=== PATIENT | female | born 1985 | race Caucasian/White ===

== ENCOUNTER 2020-05-19 09:17 | Emergency (ER) | payer SELFPAY ==
[2020-05-19] MEDS ORDERED: Bacitracin Oint 1 GM U/D Packet TOP ONE (09:30)
[2020-05-19] MEDS: Lidocaine 1% 30 ML SDV INFILT ONE (09:30)
[2020-05-19] MEDS: Diphtheria,Pertussis(Acell),Tetanus Vaccine 0.5 ML SDV IM ONE (10:00)
--- NOTE | 2020-05-19 10:01 | EDM.PDOC ---
ED [facility] GENERAL MEDICAL PROBLEM - General Chief Complaint: General Stated Complaint: FINGER INJURY Time Seen by Provider: 05/19/20 09:25 Source of Information: Reports: Patient History Limitations: Reports: No Limitations - History of Present Illness INITIAL COMMENTS - FREE TEXT/NARRATIVE: 35 year old female presents to ER with 2.5 cm laceration to right hand between 4th and 5th finger. She was at work and cut her hand on an exposed bolt. Bleeding controlled on arrival, unsure on tetanus status. CMS +, clean wound. Onset: Today Location: Reports: Upper Extremity, Right Severity: Mild Past Medical History Other HEENT History: tonsillectomy ED ROS GENERAL - Review of Systems Review Of Systems: Comprehensive ROS is negative, except as noted in HPI. ED EXAM, GENERAL - Physical Exam Exam: See Below Exam Limited By: No Limitations General Appearance: Alert, No Apparent Distress Ears: Normal External Exam, Hearing Grossly Normal Ear Exam: Bilateral Ear: Auricle Normal Nose: Normal Inspection, No Blood Throat/Mouth: Normal Inspection, Normal Voice Head: Atraumatic Neck: Normal Inspection, Full Range of Motion Respiratory/Chest: No Respiratory Distress Cardiovascular: Regular Rate, Rhythm Peripheral Pulses: 3+: Radial (L), Radial (R) GI/Abdominal: Non-Tender Back Exam: Full Range of Motion Extremities: Normal Inspection, Normal Range of Motion, Normal Capillary Refill Neurological: Alert, Oriented, CN II-XII Intact, Normal Gait, No Motor/Sensory Deficits, Sensory/Motor Deficit Psychiatric: Normal Affect Skin Exam: Warm, Dry, Normal Color, No Rash, Wound/Incision Lymphatic: No Adenopathy ED GENERAL MEDICAL PROCEDURES - Laceration/Wound Repair Right Midline Hand Lac/wound length in cm: 2.5 Appearance: Superficial, Clean Distal NVT: Neuro & Vascular Intact, No Tendon Injury Anesthetic Type: Local Local Anesthesia - Lidocaine (Xylocaine): 1% Plain Local Anesthetic Volume: 2cc Skin Prep: Providone-Iodine (Betadine) Exploration/Debridement/Repair: Wound Explored Closed with: Sutures Suture Size: 4-0 # of Sutures: 6 Suture Type: Nylon Departure - Departure Time of Disposition: 09:59 Disposition: Home, Self-Care 01 Clinical Impression: Laceration - Discharge Information *PRESCRIPTION DRUG MONITORING PROGRAM REVIEWED*: Not Applicable *COPY OF PRESCRIPTION DRUG MONITORING REPORT IN PATIENT WINNIE: Not Applicable Instructions: Laceration Care, Adult Referrals: PCP,None [Primary Care Provider] - Forms: ED Department Discharge Care Plan Goals: Please have sutures removed in 7-8 days. Take ibuprofen and tylenol as needed. Watch for signs and symptoms of infection.
[2020-05-19 16:26] VITALS: PULSE 88
[2020-05-19 16:28] VITALS: BP 150/102
== END 2020-05-19 10:00 | disposition home or self-care (01) ==
LOC: LB.NPLAB 09:17 → LB.ED 09:17 → LB.NPLAB 10:00 → LB.ED 10:00 → EDSTATUS 12:08
DX: S61.411A Laceration without foreign body of right hand, initial encounter (principal); Z23 Encounter for immunization; W26.8XXA Contact with other sharp object(s), not elsewhere classified, initial encounter; Y92.89 Other specified places as the place of occurrence of the external cause; Y99.0 Civilian activity done for income or pay
CPT/HCPCS: 12001; 90471; 90715; 99282-25

== ENCOUNTER 2024-04-29 12:41 | Inpatient (IN) | payer OTHER ==
[2024-04-29] MEDS: Sodium Chloride 0.9% 1,000 ML IV ONE (15:00)
[2024-04-29] MEDS: Ibuprofen 800 MG Tab PO ONE (15:22)
[2024-04-29 15:32] LABS: HEMATOCRIT 39.7 % (37.0-47.0); MEAN CORPUSCULAR HGB CONC 35.3 g/dL (31.0-35.0); MEAN CORPUSCULAR VOLUME 91 fL (76-96); PLATELET COUNT,PLT 227 K/uL (150-500); RED BLOOD CELL COUNT 4.38 M/uL (3.80-5.80); RED CELL DISTRIBUTION WIDTH 12.2 % (11.0-16.0)
[2024-04-29 15:43] LABS: WHITE BLOOD CELL COUNT,WBC 23.1 K/uL (4.0-11.0)
[2024-04-29 15:51] LABS: ANION GAP 13.7 mmol/L (5.0-15.0); BUN/CREATININE RATIO 7.7 (6-25); CALCIUM 8.7 mg/dL (8.5-10.1); CARBON DIOXIDE,CO2 25.7 mmol/L (21.0-32.0); CREATININE 0.78 mg/dL (0.55-1.02); EST CRCL DRUG DOSING (CG) 106.79 mL/min; POTASSIUM,K 3.4 mmol/L (3.5-5.1)
[2024-04-29 16:09] LABS: ANISOCYTOSIS OCCASIONAL; PLATELET COUNT ESTIMATE ADEQUATE; POIKILOCYTOSIS OCCASIONAL
[2024-04-29] MEDS: VANCOmycin 2 GM in Sodium Chloride 0.9% 500 ML IV ONE (16:11)
[2024-04-29] MEDS ORDERED: Ondansetron 4 MG/2 ML SDV IV PRN (16:17)
[2024-04-29] MEDS: FLUoxetine 10 MG Cap PO SCH (20:00)
[2024-04-29] MEDS: Acetaminophen 325 MG Tab PO PRN (21:15)
[2024-04-30] MEDS: Levothyroxine 88 MCG Tab PO SCH (06:50)
[2024-04-30] MEDS: Lactobacillus Acidophilus/Lactobacillus Sporogenes (Probiotic) Tab PO SCH (07:42)
[2024-04-30] MEDS: Enoxaparin 40 MG/0.4 ML Syringe SUBCUT SCH (07:42)
[2024-04-30 08:03] LABS: HEMOGLOBIN 13.2 g/dL (11.5-16.5); MEAN CORPUSCULAR HEMOGLOBIN 32.1 pg (27.0-32.0); MEAN CORPUSCULAR HGB CONC 34.7 g/dL (31.0-35.0); MEAN PLATELET VOLUME 10.5 fL (6.0-10.0); RED BLOOD CELL COUNT 4.11 M/uL (3.80-5.80); RED CELL DISTRIBUTION WIDTH 12.4 % (11.0-16.0); WHITE BLOOD CELL COUNT,WBC 16.6 K/uL (4.0-11.0)
[2024-04-30 08:48] LABS: A/G RATIO 0.6 (0.8-2.0); ALBUMIN 2.4 g/dL (3.4-5.0); ANION GAP 12.8 mmol/L (5.0-15.0); BILIRUBIN TOTAL 0.3 mg/dL (0.0-1.0); BUN/CREATININE RATIO 6.3 (6-25); CALCIUM 8.6 mg/dL (8.5-10.1); CARBON DIOXIDE,CO2 27.6 mmol/L (21.0-32.0); CREATININE 0.8 mg/dL (0.55-1.02); EST CRCL DRUG DOSING (CG) 104.12 mL/min; POTASSIUM,K 3.4 mmol/L (3.5-5.1); PROTEIN TOTAL,TP 6.4 g/dL (6.4-8.2)
[2024-04-30] MEDS: traMADol 50 MG Tab PO PRN (09:25)
[2024-04-30] MEDS: VANCOmycin 1 GM in Sodium Chloride 0.9% 250 ML IV SCH (09:26)
[2024-04-30] MEDS: VANCOmycin 0.75 GM in Sodium Chloride 0.9% 250 ML IV ONE (11:47)
[2024-04-30] MEDS: VANCOmycin 750 MG/150 ML 750 MG in Premix Bag 1 BAG IV SCH (17:45)
[2024-04-30] MEDS: VANCOmycin 1.75 GM in Sodium Chloride 0.9% 500 ML IV SCH (21:09)
[2024-05-01] MEDS ORDERED: Albuterol/Ipratropium 3.0-0.5 MG/3 ML Neb Soln NEB PRN (08:14)
[2024-05-01] MEDS: guaiFENesin/Dextromethorphan 100-10 MG/5 ML Soln 10 ML Cup PO PRN (08:41)
[2024-05-01] MEDS: Ibuprofen 400 MG Tab PO PRN (08:41)
[2024-05-01 09:54] LABS: HEMATOCRIT 37.3 % (37.0-47.0); MEAN CORPUSCULAR HEMOGLOBIN 32.1 pg (27.0-32.0); MEAN CORPUSCULAR HGB CONC 34.9 g/dL (31.0-35.0); MEAN PLATELET VOLUME 9.7 fL (6.0-10.0); RED BLOOD CELL COUNT 4.05 M/uL (3.80-5.80); RED CELL DISTRIBUTION WIDTH 12.5 % (11.0-16.0); WHITE BLOOD CELL COUNT,WBC 12.3 K/uL (4.0-11.0)
[2024-05-01 10:21] LABS: A/G RATIO 0.6 (0.8-2.0); ALBUMIN 2.3 g/dL (3.4-5.0); BILIRUBIN TOTAL 0.2 mg/dL (0.0-1.0); BUN/CREATININE RATIO 5.4 (6-25); CALCIUM 8.7 mg/dL (8.5-10.1); CARBON DIOXIDE,CO2 28.2 mmol/L (21.0-32.0); CREATININE 0.74 mg/dL (0.55-1.02); EST CRCL DRUG DOSING (CG) 112.56 mL/min; PROTEIN TOTAL,TP 6.4 g/dL (6.4-8.2)
[2024-05-01 10:42] LABS: ANION GAP 12.7 mmol/L (5.0-15.0); POTASSIUM,K 2.9 mmol/L (3.5-5.1)
[2024-05-01] MEDS: Potassium Chloride 20 MEQ Tab.ER PO SCH (11:19)
[2024-05-01] MEDS: Pantoprazole 40 MG Tab.CR PO SCH (19:13)
[2024-05-01] MEDS: Enoxaparin 150 MG/1 ML Syringe SUBCUT SCH (19:14)
[2024-05-01] MEDS ORDERED: Enoxaparin 150 MG/1 ML Syringe SUBCUT SCH (20:00)
[2024-05-02 08:31] LABS: HEMATOCRIT 39.4 % (37.0-47.0); HEMOGLOBIN 13.5 g/dL (11.5-16.5); MEAN CORPUSCULAR HEMOGLOBIN 31.8 pg (27.0-32.0); MEAN CORPUSCULAR HGB CONC 34.3 g/dL (31.0-35.0); MEAN PLATELET VOLUME 9.8 fL (6.0-10.0); RED BLOOD CELL COUNT 4.25 M/uL (3.80-5.80); RED CELL DISTRIBUTION WIDTH 12.5 % (11.0-16.0); WHITE BLOOD CELL COUNT,WBC 9.5 K/uL (4.0-11.0)
[2024-05-02 09:07] LABS: A/G RATIO 0.6 (0.8-2.0); ALBUMIN 2.2 g/dL (3.4-5.0); ANION GAP 12.4 mmol/L (5.0-15.0); BILIRUBIN TOTAL 0.3 mg/dL (0.0-1.0); BUN/CREATININE RATIO 7.9 (6-25); CALCIUM 8.4 mg/dL (8.5-10.1); CARBON DIOXIDE,CO2 26.9 mmol/L (21.0-32.0); CREATININE 0.76 mg/dL (0.55-1.02); EST CRCL DRUG DOSING (CG) 109.6 mL/min; POTASSIUM,K 3.3 mmol/L (3.5-5.1); PROTEIN TOTAL,TP 6.2 g/dL (6.4-8.2)
[2024-05-02] MEDS: Mupirocin Oint 22 GM Tube TOP ONE (10:10)
[2024-05-03 07:46] LABS: ANION GAP 10.6 mmol/L (5.0-15.0); BUN/CREATININE RATIO 7.7 (6-25); CALCIUM 8.4 mg/dL (8.5-10.1); CARBON DIOXIDE,CO2 29.3 mmol/L (21.0-32.0); CREATININE 0.78 mg/dL (0.55-1.02); EST CRCL DRUG DOSING (CG) 106.79 mL/min; POTASSIUM,K 3.9 mmol/L (3.5-5.1)
[2024-05-03 07:59] LABS: HEMATOCRIT 38.8 % (37.0-47.0); HEMOGLOBIN 13.4 g/dL (11.5-16.5); MEAN CORPUSCULAR HEMOGLOBIN 32.1 pg (27.0-32.0); MEAN CORPUSCULAR HGB CONC 34.5 g/dL (31.0-35.0); MEAN PLATELET VOLUME 9.8 fL (6.0-10.0); RED BLOOD CELL COUNT 4.17 M/uL (3.80-5.80); RED CELL DISTRIBUTION WIDTH 12.3 % (11.0-16.0); WHITE BLOOD CELL COUNT,WBC 10.6 K/uL (4.0-11.0)
[2024-05-03] MEDS: Mupirocin Oint 22 GM Tube TOP SCH (08:42)
[2024-05-03] MEDS: Tuberculin, PPD 5 Units/0.1 ML 1 ML MDV IDERM ONE (21:13)
[2024-05-04] MEDS: Sulfamethoxazole/Trimethoprim 800-160 MG Tab PO SCH (08:25)
[2024-05-04] MEDS ORDERED: Enoxaparin 150 MG/1 ML Syringe ONE (12:00)
[2024-05-04] MEDS ORDERED: Sulfamethoxazole/Trimethoprim 800-160 MG Tab ONE (12:00)
== END 2024-05-04 12:45 | disposition home or self-care (01) | DRG 603 ==
LOC: LB.ED 12:41 → LB.MS 16:12
PROVIDERS: ADMIT Physician Assistant; ATTEND Physician Assistant
DX: L03.115 Cellulitis of right lower limb (principal); Z79.899 Other long term (current) drug therapy; Z90.89 Acquired absence of other organs; R79.89 Other specified abnormal findings of blood chemistry
CPT/HCPCS: 36415; 80048; 80053; 80202; 83605; 85025; 85027; 85379; 86580; 87428-QW; 96360; 99221; 99231; 99238; 99284-25; A9270-GY; J1650; J7030; J7040; U0002